=== PATIENT | female | born 2000 | race Caucasian/White ===

== ENCOUNTER 2023-05-24 12:53 | Day surgery (SDC) | payer BC, SELFPAY ==
[2023-05-24 12:59] VITALS: BMI 25.1
[2023-05-24 13:17] VITALS: BP 124/75; PULSE 85; RESP 20; O2SAT 100
[2023-05-24 13:40] VITALS: BP 118/65; PULSE 86; RESP 22; O2SAT 100
--- NOTE | 2023-05-25 16:11 | P.PCN_ITS ---
[facility] Loop Recorder Date: 05/24/23 Time: 14:00 Procedure Performed:: Implantation of loop recorder Indication:: Syncope Technique:: Patient was brought to the cardiac Intelligence Director as an outpatient. After informed consent was obtained, 1% lidocaine was used to anesthetize the left sternal area. Using the preformed scalpel an incision was made and then using the preloaded apparatus the loop recorder was delivered subcutaneously without complications. Surgical glue was used along with Steri-Strips and Tegaderm to bandage the area. No immediate complications noted. Impression:: Successful implantation of loop recorder Serial Number:: [employer] model number DM [id number] Serial number [id number] Plan:: Routine postop care
== END 2023-05-24 13:52 | disposition home or self-care (01) ==
PROVIDERS: PCP Pediatrics; Visit Provider Internal Medicine
DX: R55 Syncope and collapse (principal); R42 Dizziness and giddiness
CPT/HCPCS: 33285; C1764

== ENCOUNTER 2023-06-14 13:02 | Outpatient (CLI) | payer BC, SELFPAY ==
--- NOTE | 2023-06-14 13:02 | CA_ITS ---
APPROVED REPORT EXAM: Comprehensive 2D, Doppler, and color-flow Echocardiogram Bass Guitar Teacher: Lydia Causey RDCS Ht: 5 ft 9 in Wt: 170lbs BSA: 1.93 BP: 124/74 mmHg Indications: SYNCOPE M-Mode Dimensions RVDd 1.92 cm (0.9-2.6) LA Diam 2.45 cm (1.9-4.0) LVDd 4.53 cm (3.5-5.7) LVDs 3.17 cm (3.5-5.7) IVSd 0.49 cm (0.6-1.1) PWd 0.76 cm (0.6-1.1) EF (Teich) 57.40% FS 30.00% EDV (Teich) 93.90 mL ESV (Teich) 40.00 mL LV Diastology E Decel Time 217 (160-240 msec) E/A Ratio 1.4 Mitral Valve MV E Max Yosi. 77.0 (40-130 cm/s) MV A Velocity 54.0 (40-130 cm/s) E/A Ratio 1.42 MV PHT 63.0 ms Left Ventricle The left ventricle is normal size. The left ventricular systolic function is normal. The left ventricular ejection fraction is within the normal range. There is normal left ventricular wall thickness. There is normal LV segmental wall motion. The left ventricular diastolic function is normal. LVEF is 55% Right Ventricle The right ventricle is normal size. The right ventricular systolic function is normal. Atria The left atrium size is normal. The right atrium size is normal. There is no Doppler evidence of interatrial shunt. Aortic Valve The aortic valve opens well. There is no aortic valvular stenosis. No aortic regurgitation is present. Mitral Valve The mitral valve is normal in structure. No evidence of mitral valve stenosis. There is no mitral valve regurgitation noted. Tricuspid Valve The tricuspid valve leaflets are thin and pliable. There is no tricuspid valve stenosis. Trace tricuspid regurgitation. There is insufficient TR jet to estimate RVSP. Pulmonic Valve The pulmonary valve is normal in structure. Trace pulmonic regurgitation. Great Vessels The aortic root is normal in size. The ascending aorta is not well-visualized. The IVC is not well-visualized. Pericardium There is no pericardial effusion. Other Information Study Quality: Adequate Conclusion Normal biventricular systolic function. No significant valvular stenosis or regurgitation. Electronically signed by : Sharda Acosta MD 06/14/2023 14:35:42
== END 2023-06-14 23:59 ==
LOC: RT 13:02
PROVIDERS: PCP Pediatrics; Visit Provider Nurse Practitioner Family
DX: R42 Dizziness and giddiness (principal); R55 Syncope and collapse; R94.31 Abnormal electrocardiogram [ECG] [EKG]
CPT/HCPCS: 93306